=== PATIENT | female | born 1965 | race Two or more races ===

== ENCOUNTER 2024-08-23 13:21 | Inpatient (IN) | payer OTHER ==
[~2024-08-23] VITALS: Ht 152.4 cm; Wt 63.5 kg
[2024-08-23] MEDS ORDERED: PEPCID AC20 MG (13:43)
[2024-08-23] MEDS ORDERED: PROTONIX20 MG (13:43)
[2024-08-23] MEDS ORDERED: APRISO0.375 GM (13:44)
[2024-08-23] MEDS ORDERED: 0.9 % SODIUM CHLORIDE 1,000 ML IV SCH ×2 (14:08→20:30)
[2024-08-23] MEDS ORDERED: HYOSCYAMINE SULFATE 0.125 MG TAB.SUBL SL ONE (14:15)
[2024-08-23] MEDS ORDERED: HYOSCYAMINE SULFATE 0.125 MG TAB.SUBL ONE ×2 (14:24→21:34)
[2024-08-23] MEDS ORDERED: BARIUM SULFATE 450 ML ORAL.SUSP PO ONE (14:34)
[2024-08-23 14:47] LABS: HEMOGLOBIN 12.9 g/dL (12.0-15.00); MEAN CELL VOLUME 85.1 fL (80.00-100.00); MEAN CORPUSCULAR HEMOGLOBIN 28.9 pg (27.00-32.0); PLATELET COUNT 155 K/uL (150-450); RED BLOOD COUNT 4.47 M/uL (4.00-6.00); RED CELL DISTRIBUTION WIDTH 13.3 % (11.5-14.5)
[2024-08-23] MEDS ORDERED: ONDANSETRON HCL 2 MG/ML VIAL IV STA (15:16)
[2024-08-23] MEDS ORDERED: ONDANSETRON HCL 2 MG/ML VIAL ONE (15:18)
[2024-08-23] MEDS ORDERED: FAMOTIDINE/PF 20 MG/2 ML VIAL ONE (15:19)
[2024-08-23] MEDS ORDERED: FAMOTIDINE/PF 20 MG/2 ML VIAL IV PUSH ONE (15:30)
[2024-08-23 16:29] LABS: ALBUMIN 3.6 gm/dL (3.4-5.0); BILIRUBIN TOTAL 1.07 mg/dL (0.3-1.2); CALCIUM 8.6 mg/dL (8.5-10.1); CREATININE SERUM 0.64 mg/dL (0.55-1.02); GFR 95.31; GLOBULINA 3.8 G/DL (2.4-3.5); POTASSIUM 3.79 mEq/L (3.5-5.1); TOTAL PROTEIN 7.4 gm/dL (6.4-8.2)
[2024-08-23 17:24] LABS: URINE APPEARANCE Clear; URINE BILIRRUBIN Negative (NEGATIVE); URINE BLOOD Trace; URINE COLOR Yellow; URINE GLUCOSE Negative (NEGATIVE); URINE LEUKOCYTE Negative; URINE NITRATE Negative; URINE PROTEIN Trace (NEGATIVE)
[2024-08-23 17:25] LABS: URINE BACTERIA 2870.2 uL (0.0-1933); URINE EPITHELIAL CELLS 60.3 uL (0.0-38.8); URINE RBC 10.4 uL (0.0-20.8); URINE WBC 40.2 uL (0.0-23.2)
[2024-08-23 17:26] LABS: URINE CAST 1.17 uL (0.0-1.40); URINE KETONE 40 (NEGATIVE)
[2024-08-23] MEDS ORDERED: METOCLOPRAMIDE HCL 5 MG/ML VIAL ONE (17:43)
[2024-08-23] MEDS ORDERED: METOCLOPRAMIDE HCL 5 MG/ML VIAL IV ONE (18:00)
[2024-08-23] MEDS ORDERED: ACETAMINOPHEN 500 MG GEL..CAP PO ONE ×2 (19:30→19:32)
[2024-08-23] MEDS ORDERED: METRONIDAZOLE/SODIUM CHLORIDE 500 MG/100 ML PIGGYBACK IV ONE ×2 (19:30→19:32)
[2024-08-23] MEDS ORDERED: CIPROFLOXACIN IN 5 % DEXTROSE 400 MG/200 ML PIGGYBAG IV ONE ×2 (19:30→19:32)
[2024-08-23] MEDS ORDERED: PANTOPRAZOLE SODIUM 40 MG/VIAL VIAL IV SCH (20:29)
[2024-08-23] MEDS ORDERED: ACETAMINOPHEN 500 MG GEL..CAP PO PRN (20:30)
[2024-08-23] MEDS ORDERED: HYOSCYAMINE SULFATE 0.125 MG TAB.SUBL PO ONE (20:30)
[2024-08-23] MEDS ORDERED: ONDANSETRON HCL 4 MG in 0.9 % SODIUM CHLORIDE 50 ML IV PRN (20:30)
[2024-08-23] MEDS ORDERED: MORPHINE SULFATE 2 MG/ML CARTRIDGE IV SCH (20:30)
[2024-08-23] MEDS ORDERED: CIPROFLOXACIN IN 5 % DEXTROSE 200 ML IV SCH (21:00)
[2024-08-23 22:13] LABS: INR 1.1; PARTIAL THROMBOPLASTIN TIME 28.1 SECONDS (22.0-34.0); PROTHROMBIN TIME 11.9 SECONDS (9.0-11.5)
[2024-08-24] MEDS ORDERED: METRONIDAZOLE/SODIUM CHLORIDE 100 ML IV SCH (01:00)
[2024-08-24 01:01] VITALS: BP 156/86
[2024-08-24] MEDS ORDERED: ACETAMINOPHEN 500 MG GEL..CAP PO ONE (01:18)
[2024-08-24] MEDS ORDERED: ONDANSETRON HCL 2 MG/ML VIAL ONE (01:18)
[2024-08-24] MEDS ORDERED: METRONIDAZOLE/SODIUM CHLORIDE 500 MG/100 ML PIGGYBACK IV ONE (01:19)
[2024-08-24 02:05] VITALS: BP 102/57; O2SAT 98
[2024-08-24 03:30] VITALS: BP 95/55
[2024-08-24] MEDS ORDERED: LEVOTHYROXINE SODIUM 125 MCG TABLET PO SCH (06:00)
[2024-08-24 08:56] VITALS: BP 110/65
[2024-08-24] MEDS ORDERED: MORPHINE SULFATE 2 MG/ML CARTRIDGE IV SCH (13:00)
[2024-08-24] MEDS ORDERED: KETOROLAC TROMETHAMINE 30 MG VIAL IV PRN (14:00)
[2024-08-24] MEDS ORDERED: MESALAMINE 400 MG CAP.DRTAB. PO SCH (17:00)
[2024-08-24 17:21] VITALS: BP 110/43
[2024-08-25 00:53] VITALS: BP 101/55; O2SAT 97
[2024-08-25 09:29] VITALS: BP 91/42
[2024-08-25] MEDS ORDERED: DEXTROSE 5 % IN WATER 1,000 ML IV SCH (09:45)
[2024-08-25 17:33] VITALS: BP 125/66
[2024-08-26 01:00] VITALS: BP 109/55; O2SAT 96
[2024-08-26 07:34] LABS: HEMATOCRIT 31.6 % (36.0-45.00); HEMOGLOBIN 10.9 g/dL (12.0-15.00); MEAN CELL VOLUME 85.2 fL (80.00-100.00); MEAN CORPUSCULAR HEMOGLOBIN 29.5 pg (27.00-32.0); MEAN CORPUSCULAR HGB CONC 34.6 g/dl (32.0-36.0); RED BLOOD COUNT 3.71 M/uL (4.00-6.00); RED CELL DISTRIBUTION WIDTH 13.2 % (11.5-14.5)
[2024-08-26 07:44] LABS: PLATELET COUNT 130 K/uL (150-450)
[2024-08-26 09:24] VITALS: BP 113/50
== END 2024-08-26 14:48 | disposition home or self-care (01) | DRG 392 ==
LOC: ER 13:22 → MEDI 21:00
PROVIDERS: Emergency Medicine; General Practice; Internal Medicine; ADMIT Student in an Organized Health Care Education/Training Program; ATTEND Student in an Organized Health Care Education/Training Program
PROC: BW21YZZ Computerized Tomography (CT Scan) of Abdomen and Pelvis using Other Contrast (ICD-10-PCS; principal; 2024-08-23)
DX: K57.92 Diverticulitis of intestine, part unspecified, without perforation or abscess without bleeding (principal); K52.9 Noninfective gastroenteritis and colitis, unspecified; E03.9 Hypothyroidism, unspecified